=== PATIENT | female | born 1975 | race Caucasian/White ===

== ENCOUNTER → 2022-08-08 | Day surgery (SDC) | payer BC ==
[~2022-08-08] MED LIST: ACETAMIN-CODE12.5 ML PO; ACETAMINOPHEN 1000 MG/100 ML 100 ML IV ONE; AMLODIPINE BESYL5 MG PO; BUPIVACAINE 0.5%/EPI 30 ML SDV INJ ONE; DEXAMETHASONE SOD PHOS 10 MG/1 ML VIAL ONE; FENTANYL CITRATE/PF 100MCG/2 ML INJ ONE; JARDIANCE10 MG PO; LEXAPRO10 MG PO; MIDAZOLAM HCL 2 MG/2 ML VIAL ONE; MULTI-VITAMIN1 EACH PO; ONDANSETRON HCL INJ 2MG/ML 2ML 2 MG/ML VIAL ONE; OZEMPIC0.25 MG/0. SC; POTASSIUM CITR10 MEQ PO; STELARA90 MG/1 ML SC
[2022-08-08 13:40] VITALS: BP 100/52
== END | disposition home or self-care (01) ==
LOC: OR 07:42
PROVIDERS: ATTEND Otolaryngology Otolaryngology/Facial Plastic Surgery
DX: E01.0 Iodine-deficiency related diffuse (endemic) goiter (principal); Z88.0 Allergy status to penicillin; I10 Essential (primary) hypertension; E11.9 Type 2 diabetes mellitus without complications; D64.9 Anemia, unspecified; K50.90 Crohn's disease, unspecified, without complications; Z79.899 Other long term (current) drug therapy; Z83.49 Family history of other endocrine, nutritional and metabolic diseases
CPT/HCPCS: 36415; 60220; 82948; 88307; 88331; 93005; C1713; J0131; J1100; J2250; J2405; J3010